=== PATIENT | female | born 1950 | race Caucasian/White ===

== ENCOUNTER 2017-08-07 17:58 | Emergency (ER) | payer MEDICARE ==
[~2017-08-07] VITALS: Ht 165.1 cm; Wt 69.4 kg
[2017-08-07] MEDS ORDERED: PROP40TA7 PO (18:18)
[2017-08-07 18:28] LABS: BASOPHILS % (AUTO) 0.5 % (0.0-2.0); EOSINOPHILS # (AUTO) 0.1 K/uL (0.0-0.7); EOSINOPHILS % (AUTO) 1.2 % (0.0-7.0); HEMATOCRIT 40.5 % (31.2-41.9); HEMOGLOBIN 14.1 g/dL (10.9-14.3); LYMPHOCYTES # (AUTO) 3.6 K/uL (20.0-40.0); LYMPHOCYTES % (AUTO) 40.8 % (20.5-51.5); MEAN CORPUSCULAR HEMOGLOBIN 31.9 uug (24.7-32.8); MEAN CORPUSCULAR HGB CONC 35 g/dL (32.3-35.6); MEAN CORPUSCULAR VOLUME 91.5 fL (75.5-95.3); MONOCYTES # (AUTO) 0.9 K/uL (2.0-10.0); MONOCYTES % (AUTO) 9.8 % (0.0-11.0); NEUTROPHILS # (AUTO) 4.3 K/uL (1.8-8.9); NEUTROPHILS % (AUTO) 47.7 % (38.5-71.5); PLATELET COUNT (AUTO) 210 K/uL (179-408); RED BLOOD CELL COUNT(AUTO) 4.42 MIL/uL (3.63-4.92); WHITE BLOOD COUNT (AUTO) 8.9 K/uL (3.8-11.8)
[2017-08-07] MEDS ORDERED: ASPIRIN EC 325 MG TABLET.DR PO ONE (18:45)
[2017-08-07] MEDS ORDERED: ASPIRIN 325 MG TABLET PO ONE (18:45)
--- NOTE | 2017-08-07 18:45 | NUR ---
Patient was seen by Dr Mckinney for c/o chest pain. 12 lead EKG done. Labs drawn. Patient on a continuous electronic device monitor. patient states she has no chest pain at this moment. Patient states "lets wait on the IV, I dont want it now". MD aware.
[2017-08-07 18:50] LABS: BILIRUBIN,DIRECT 0.1 mg/dL (0.0-0.2); BILIRUBIN,TOTAL 0.6 mg/dL (0.2-1.0); CREATININE 0.8 mg/dL (0.6-1.3); POTASSIUM 4.4 mmol/L (3.5-5.1); TOTAL PROTEIN, SERUM 7.5 g/dL (6.4-8.2)
--- NOTE | 2017-08-07 19:06 | NUR ---
handoff report given to Ladi BANKS
--- NOTE | 2017-08-07 19:11 | NUR ---
DC and follow up instructions given and explained to patient who states she understands all instructions.
[2017-08-07 19:12] VITALS: BP 125/70
== END 2017-08-07 19:13 | disposition home or self-care (01) ==
LOC: ER 18:02
DX: I20.9 Angina pectoris, unspecified (principal); Z79.899 Other long term (current) drug therapy
CPT/HCPCS: 36415; 71045; 80048; 80076; 84484; 85025; 85379; 85730; 93005; 99285; A4663; 70030-TC